=== PATIENT | male | born 1930 | race Caucasian/White ===

== ENCOUNTER 2016-09-18 13:06 | Emergency (ER) | payer OTHER ==
[~2016-09-18] VITALS: Wt 84.9 kg
[~2016-09-18 13:06] MED LIST: CEPH-443 PO; FURO40TA4; LISI10TA; LORA-52; OMEP20CA9; OXYB10TA13; PRAV20TA63; TRAM-40; WARF2.5T
[2016-09-18 15:54] LABS: BASOPHILS % 0.2 % (0.0-2.0); EOSINOPHILS # 0.1 10^3/ul (0.0-0.5); EOSINOPHILS % 2.5 % (0.0-7.0); HEMATOCRIT 37.7 % (42.0-52.0); HEMOGLOBIN 12.7 g/dl (14.0-18.0); LYMPHOCYTES # 0.5 10^3/ul (0.8-2.9); LYMPHOCYTES % 10.6 % (15.0-51.0); MEAN CORPUSCULAR HEMOGLOBIN 32.4 pg (29.0-33.0); MEAN CORPUSCULAR HGB CONC 33.6 g/dl (32.0-37.0); MEAN CORPUSCULAR VOLUME 96.4 fl (82.0-101.0); MEAN PLATELET VOLUME 6.7 fl (7.4-10.4); MONOCYTE # 0.5 10^3/ul (0.3-0.9); MONOCYTES % 11.5 % (0.0-11.0); NEUTROPHIL # 3.4 10^3/ul (1.6-7.5); NEUTROPHILS % 75.2 % (39.0-77.0); PLATELET COUNT 254 10^3/UL (140-440); RED BLOOD COUNT 3.91 10^6/ul (4.70-6.10); RED CELL DISTRIBUTION WIDTH 14.1 % (11.5-14.5); UNCORRECTED WBC 4.5 10^3/ul (4.8-10.8); WHITE BLOOD COUNT 4.5 10^3/ul (4.8-10.8)
[2016-09-18 16:10] LABS: CONDITION 1
[2016-09-18 16:11] LABS: INR 1.07; PARTIAL THROMBOPLASTIN TIME 27.2 Sec (25.0-35.0); PROTIME 13.9 Sec (12.2-14.2); PT RATIO 1.1
[2016-09-18 16:12] LABS: POTASSIUM 4.8 mmol/L (3.5-5.1)
[2016-09-18 16:14] LABS: CREATININE 1.14 mg/dl (0.61-1.24)
[2016-09-18 16:15] LABS: CALCIUM 8.8 mg/dl (8.4-10.2)
[2016-09-18 16:26] LABS: TROPONIN-I 0.013 ng/ml (0.00-0.12)
--- NOTE | 2016-09-18 16:29 | RADRPT ---
PROCEDURE: XR Chest. CLINICAL INDICATION: Chest pain TECHNIQUE: Chest AP portable. COMPARISON: 12/25/2013 FINDINGS: The mediastinal structures are unremarkable. There is calcification of the thoracic aorta (consiste nt with atherosclerosis). There is moderate cardiomegaly. The pulmonary vascularity is normal. Th ere is mild bibasilar subsegmental atelectasis. No consolidation is identified. The pleural spaces are unremarkable. There are senescent changes of the axial skeleton. IMPRESSION: Calcification of the thoracic aorta (consistent with atherosclerosis) Moderate cardiomegaly Mild bibasilar subsegmental atelectasis RPTAT: HGDB .Art Bobo MD, MD Date Time Electronically viewed and signed by .Art Bobo MD, on 09/18/2016 16:28 .B/
[2016-09-18] MEDS ORDERED: FUROSEMIDE 40 MG INJ IV ONE (17:00)
--- NOTE | 2016-09-18 17:01 | ERD ---
ER Documentation Chief Complaint Date/Time DATE: 09/18/16 TIME: 16:59 Chief Complaint COUGH AND FLU-LIKE SYMPTOMS MILD SOB FOR 2 WKS. NO CP OR EAR PAIN OR ST HPI This is an 86-year-old male who presents to the emergency room for evaluation of bilateral leg swelling and mild shortness of breath worse when lying flat. This patient was seen by his primary care physician who stated that he could have "water on his lungs". The patient was transferred to the emergency room for further evaluation. This patient does have a history of congestive heart failure and is on Lasix 40 mg daily patient is denying any chest pain or palpitations at this time. Patient denies any aggravating or relieving factors for his shortness of breath besides position ROS All systems reviewed and are negative except as per history of present illness. Medications Home Meds Discontinued Reported Medications Oxybutynin Chloride* (Oxybutynin Chloride* ER) 10 Mg/Bottle Tab.osm.24 03/22/10 Pravastatin Sodium* (Pravastatin Sodium*) 20 Mg Tablet 03/22/10 Warfarin Sodium* (Coumadin*) 2.5 Mg Tablet 03/22/10 Loratadine (Alavert) 10 Mg Tablet 03/22/10 Lisinopril* (Prinivil*) 10 Mg Tablet 03/22/10 Furosemide (Lasix) 40 Mg Tab 03/22/10 Tramadol Hcl* (Ultram*) 50 Mg Tablet 03/22/10 Omeprazole* (Prilosec*) 20 Mg Capsule. 03/22/10 Discontinued Scripts Cephalexin* (Keflex*) 500 Mg Capsule, 500 MG PO QID for 2 Days, CAP Prov:PRAVEENA JAMIL DO 09/04/15 Allergies Allergies: Coded Allergies: No Known Allergies (Verified Allergy, Unknown, 09/18/16) PMhx/Soc History of Surgery: Yes (spine sx) Anesthesia Reaction: No Hx Neurological Disorder: No Hx Cardiac Disorders: Yes (A-FIB) Hx Psychiatric Problems: No Hx Miscellaneous Medical Probl: Yes (HTN) Hx Alcohol Use: Yes (OCCASSIONAL) Hx Substance Use: No Hx Tobacco Use: No Smoking Status: Never smoker Physical Exam Vitals Vital Signs Date Time Temp Pulse Resp B/P Pulse Ox O2 Delivery O2 Flow Rate FiO2 09/18/16 15:45 Nasal Cannula 2.0 09/18/16 15:45 Nasal Cannula 2 09/18/16 13:16 98.6 94 20 170/78 94 Physical Exam INITIAL VITAL SIGNS: Reviewed by me GENERAL: The patient is well developed and appropriate for usual state of health in no apparent distress HEENT: Pupils equal, round, and reactive to light. EOMI. There is no scleral icterus. NECK: C-spine is soft and supple, there is no meningismus. There is no cervical lymphadenopathy. LUNGS: Clear to auscultation bilaterally. There are no rales, wheezes or rhonchi. HEART: Regular rate and rhythm, no murmurs, clicks, rubs or gallops. ABDOMEN: Soft, non-tender, non-distended. There are bowel sounds in all four quadrants. No rebound or guarding. EXTREMITIES: 2+ pitting edema in the bilateral lower extremities NEUROLOGICAL: The patient moves all four extremities with 5/5 strength. Cranial nerves II - XII are intact. Normal gait. Alert and oriented SKIN: There is no apparent rash or petechiae. HEME/LYMPHATIC: There is no evidence of excessive bruising or lymphedema. PSYCHIATRIC: The patient does not appear anxious or depressed. Result Diagram: 09/18/16 1543 09/18/16 1543 Results 24 hrs Laboratory Tests Test 09/18/16 15:43 Activated Partial Thromboplast Time 27.2Sec Anion Gap 15 B-Type Natriuretic Peptide 1220PG/ML Basophils # 0.010^3/ul Basophils % 0.2% Blood Morphology Comment Blood Urea Nitrogen 18mg/dl Calcium Level 8.8mg/dl Carbon Dioxide Level 31mmol/L Chloride Level 101mmol/L Creatinine 1.14mg/dl Eosinophils # 0.110^3/ul Eosinophils % 2.5% Glucose Level 99mg/dl Hematocrit 37.7% Hemoglobin 12.7g/dl INR International Normalized Ratio 1.07 Lymphocytes # 0.510^3/ul Lymphocytes % 10.6% Mean Corpuscular Hemoglobin 32.4pg Mean Corpuscular Hemoglobin Concent 33.6g/dl Mean Corpuscular Volume 96.4fl Mean Platelet Volume 6.7fl Monocytes # 0.510^3/ul Monocytes % 11.5% Neutrophils # 3.410^3/ul Neutrophils % 75.2% Nucleated Red Blood Cells # 0.010^3/ul Nucleated Red Blood Cells % 0.0/100WBC Platelet Count 74658^3/UL Potassium Level 4.8mmol/L Prothrombin Time 13.9Sec Prothrombin Time Ratio 1.1 Red Blood Count 3.9110^6/ul Red Cell Distribution Width 14.1% Sodium Level 142mmol/L Troponin I 0.013ng/ml White Blood Count 4.510^3/ul Current Medications Medications (Trade) Dose Ordered Sig/Basia Route PRN Reason Start Time Stop Time Status Last Admin Dose Admin Furosemide (Lasix) 40 mg ONCE ONCE IV 09/18/16 17:00 09/18/16 17:01 Procedures/MDM Chest X-ray 1V Interpreted by me: Soft Tissue: No acute abnormalities Bones: No acute abnormalities Mediastinum/Cardiac Silhouette/Lungs: [No acute abnormalities] EKG: Rate/Rhythm: [Normal Sinus Rhythm] QRS, ST, T-waves: [No changes consistent w/ acute ischemia] Impression: [No evidence of ischemia or arrhythmia] This is an 86-year-old male who presents to the emergency room for evaluation of peripheral edema and mild shortness of breath worse with laying flat. This patient's history and physical exam is consistent with acute CHF. The patient is not hypoxic, no need for oxygen, no infiltrates on chest x-ray. The patient was given 40 mg of IV Lasix here in the emergency room. I did advise his to increase his Lasix dose from 40-60 mg daily for the next 3 days and to consult his primary care physician after. Family verbalized understanding, they are comfortable taking the patient home at this time and I advised him to keep the legs elevated and they verbalized understanding. Departure Diagnosis: Primary Impression: Acute CHF Additional Impressions: Normocytic anemia Shortness of breath Condition: Stable LAKEISHARENA GALEANOATUL CAUSEY Sep 18, 2016 17:01
[2016-09-18] MEDS ORDERED: LISI20TA11 PO (17:05)
[2016-09-18] MEDS ORDERED: TRAM-40 PO (17:06)
[2016-09-18] MEDS ORDERED: FURO40TA4 PO (17:06)
[2016-09-18] MEDS ORDERED: AMIT10TA6 PO (17:07)
[2016-09-18 17:17] VITALS: BP 157/89; PULSE 89; RESP 20
== END 2016-09-18 17:18 | disposition home or self-care (01) ==
LOC: E/R 13:06
DX: I50.9 Heart failure, unspecified (principal); D64.9 Anemia, unspecified; I10 Essential (primary) hypertension; Z79.01 Long term (current) use of anticoagulants
CPT/HCPCS: 36415; 71010; 80048; 83880; 84484; 85025; 85610; 85730; 93005; 96374; 99285; J1940

== ENCOUNTER 2016-09-29 06:53 | Emergency (ER) | payer OTHER ==
[~2016-09-29] VITALS: Ht 162.6 cm; Wt 72.7 kg
[~2016-09-29 06:53] MED LIST changes: +AMIT10TA6 PO; -CEPH-443 PO; -FURO40TA4; +FURO40TA4 PO; -LISI10TA; +LISI20TA11 PO; -LORA-52; -OMEP20CA9; -OXYB10TA13; -PRAV20TA63; -TRAM-40; +TRAM-40 PO; -WARF2.5T
[2016-09-29 06:57] VITALS: Ht 162.6 cm; Wt 72.7 kg
[2016-09-29] MEDS ORDERED: FUROSEMIDE 40 MG INJ IV ONE (07:30)
[2016-09-29 07:59] LABS: ADD SCAN DIFF NO
--- NOTE | 2016-09-29 08:07 | RADRPT ---
PROCEDURE: XR Chest. CLINICAL INDICATION: Abdominal pain TECHNIQUE: Single frontal chest x-ray. COMPARISON: 09/18/2016 FINDINGS: The lungs are clear of acute infiltrates, edema, effusions, or masses.Calcific atherosclerosis of th e aorta is present.. Cardiomegaly is unchanged.. The osseous structures are intact. There is mild elevation of the left hemidiaphragm. IMPRESSION: No acute cardiopulmonary disease. Cardiomegaly with calcific atherosclerosis of the aorta. RPTAT: AA .aKrl Russo MD, MD Date Time Electronically viewed and signed by .Karl Russo MD, MD on 09/29/2016 08:07 .L/
[2016-09-29 08:09] LABS: ABNORMAL IP MESSAGE 1; BASOPHILS % 0.2 % (0.0-2.0); EOSINOPHILS % 0.1 % (0.0-7.0); HEMATOCRIT 45.7 % (42.0-52.0); LYMPHOCYTES # 0.5 10^3/ul (0.8-2.9); LYMPHOCYTES % 5.4 % (15.0-51.0); MEAN CORPUSCULAR HEMOGLOBIN 31.8 pg (29.0-33.0); MEAN CORPUSCULAR HGB CONC 32.8 g/dl (32.0-37.0); MEAN PLATELET VOLUME 9.2 fl (7.4-10.4); MONOCYTE # 0.8 10^3/ul (0.3-0.9); MONOCYTES % 7.8 % (0.0-11.0); NEUTROPHIL # 8.3 10^3/ul (1.6-7.5); NEUTROPHILS % 86.1 % (39.0-77.0); PLATELET COUNT 310 10^3/UL (140-415); RED BLOOD COUNT 4.71 10^6/ul (4.70-6.10); RED CELL DISTRIBUTION WIDTH 12.7 % (11.5-14.5); WHITE BLOOD COUNT 9.6 10^3/ul (4.8-10.8)
[2016-09-29 09:12] LABS: ALBUMIN 4.3 g/dl (3.3-4.9)
[2016-09-29 09:13] LABS: POTASSIUM 4.2 mmol/L (3.5-5.1)
[2016-09-29 09:15] LABS: ALBUMIN/GLOBULIN RATIO 1.13; BILIRUBIN,INDIRECT 2.2 mg/dl (0-1.1); BILIRUBIN,TOTAL 2.2 mg/dl (0.2-1.3); CREATININE 1.21 mg/dl (0.61-1.24); TOTAL PROTEIN 8.1 g/dl (6.1-8.1)
[2016-09-29 09:16] LABS: CALCIUM 9.4 mg/dl (8.4-10.2)
[2016-09-29 09:27] LABS: TROPONIN-I 0.029 ng/ml (0.00-0.12)
[2016-09-29] MEDS ORDERED: FURO-109 PO (10:38)
[2016-09-29] MEDS ORDERED: NAPR-260 PO (10:38)
--- NOTE | 2016-09-29 10:45 | ERD ---
ER Documentation Chief Complaint Date/Time DATE: 09/29/16 TIME: 10:41 Chief Complaint unable to walk x2days, weakness in left arm, bilateral knee and ankle pain HPI 86-year-old man brought in by family members for recent lower extremity swelling and dyspnea on exertion. He does have a history of congestive heart failure and suspects he has some fluid in his lungs. Patient denies fevers or chills, no chest pain, no vomiting or diarrhea, no headache or blurry vision. Patient denies focal weakness in his arms or legs, no loss of consciousness, no recent falls, no headache or blurry vision. Patient states he has been using his medications as prescribed. ROS All systems reviewed and are negative except as per history of present illness. Medications Home Meds Active Scripts Naproxen* (Naprosyn*) 500 Mg Tablet, 500 MG PO BID Y for PAIN AND/OR INFLAMMATION, #30 TAB Prov:DIAN OLIVEROS MD 09/29/16 Furosemide* (Lasix*) 40 Mg Tablet, 40 MG PO BID, #20 TAB Prov:DIAN OLIVEROS MD 09/29/16 Reported Medications Amitriptyline Hcl* (Amitriptyline Hcl*) 10 Mg Tablet, 10 MG PO QHS, #30 TAB 09/18/16 Tramadol Hcl* (Ultram*) 50 Mg Tablet, 50 MG PO Q6H Y for PAIN, TAB 09/18/16 Furosemide* (Furosemide*) 40 Mg Tablet, 40 MG PO DAILY, TAB 09/18/16 Lisinopril* (Lisinopril*) 20 Mg Tablet, 20 MG PO DAILY, #30 TAB 09/18/16 Allergies Allergies: Coded Allergies: No Known Allergies (Verified Allergy, Unknown, 09/18/16) PMhx/Soc Congestive heart failure, hypertension, arthritis, atrial fibrillation History of Surgery: Yes (spine sx) Anesthesia Reaction: No Hx Neurological Disorder: No Hx Cardiac Disorders: Yes (A-FIB) Hx Psychiatric Problems: No Hx Miscellaneous Medical Probl: Yes (HTN) Hx Alcohol Use: Yes (OCCASSIONAL) Hx Substance Use: No Hx Tobacco Use: No Smoking Status: Former smoker FmHx Family History: No diabetes Physical Exam Vitals Vital Signs Date Time Temp Pulse Resp B/P Pulse Ox O2 Delivery O2 Flow Rate FiO2 09/29/16 11:13 98.4 82 18 148/79 99 Room Air 2.0 Nasal Cannula 09/29/16 10:00 88 18 138/75 98 Nasal Cannula 2.0 09/29/16 08:00 78 18 162/80 98 Nasal Cannula 4.0 09/29/16 06:57 98.4 93 18 141/66 94 Physical Exam GENERAL: Well-developed, well-nourished, well-hydrated, in no apparent distress , looks nontoxic in appearance HEENT: Moist mucous membranes, pink conjunctiva, no cervical spine tenderness or step-off deformities, no goiter, no jaundice or icterus, extraocular movements intact without pain. No submandibular induration, and no pharyngeal erythema NEURO: Alert and oriented 3, cranial nerves II through XII intact bilaterally, pupils equal round reactive to light, no focal deficits or facial asymmetry, sensation intact distally Strength 5/5 in upper and lower extremities bilaterally CARDIAC: Regular rate and rhythm, no murmurs rubs or gallops LUNGS: Bibasilar crackles, no wheezing or stridor ABDOMEN: Soft nontender, no guarding, no rigidity, no rebound, no psoas sign no obturator sign. Normoactive bowel sounds SKIN: Warm and dry to touch, no abrasions, contusions, or hematomas, no lacerations, no ecchymosis, no target lesions, and without ulcers EXTREMITIES: No clubbing cyanosis, 1+ pitting edema in the lower extremities bilaterally, calves are bilaterally symmetrical, no Homans sign, no popliteal cord sign. Distal pulses equal and bilateral PSYCH: Normal affect without agitation or irritability Result Diagram: 09/29/16 0747 09/29/16 0845 Results 24 hrs Laboratory Tests Test 09/29/16 07:47 09/29/16 08:45 Basophils # 0.010^3/ul Basophils % 0.2% Eosinophils # 0.010^3/ul Eosinophils % 0.1% Hematocrit 45.7% Hemoglobin 15.0g/dl Lymphocytes # 0.510^3/ul Lymphocytes % 5.4% Mean Corpuscular Hemoglobin 31.8pg Mean Corpuscular Hemoglobin Concent 32.8g/dl Mean Corpuscular Volume 97.0fl Mean Platelet Volume 9.2fl Monocytes # 0.810^3/ul Monocytes % 7.8% Neutrophils # 8.310^3/ul Neutrophils % 86.1% Nucleated Red Blood Cells # 0.010^3/ul Nucleated Red Blood Cells % 0.0/100WBC Platelet Count 36271^3/UL Red Blood Count 4.7110^6/ul Red Cell Distribution Width 12.7% White Blood Count 9.610^3/ul Alanine Aminotransferase (ALT/SGPT) 23IU/L Albumin 4.3g/dl Albumin/Globulin Ratio 1.13 Alkaline Phosphatase 113IU/L Anion Gap 20 Aspartate Amino Transf (AST/SGOT) 29IU/L B-Type Natriuretic Peptide 915PG/ML Blood Urea Nitrogen 28mg/dl Calcium Level 9.4mg/dl Carbon Dioxide Level 32mmol/L Chloride Level 93mmol/L Creatinine 1.21mg/dl Direct Bilirubin 0.00mg/dl Globulin 3.80g/dl Glucose Level 116mg/dl Indirect Bilirubin 2.2mg/dl Lipase 94U/L Potassium Level 4.2mmol/L Sodium Level 141mmol/L Total Bilirubin 2.2mg/dl Total Protein 8.1g/dl Troponin I 0.029ng/ml Current Medications Medications (Trade) Dose Ordered Sig/Basia Route PRN Reason Start Time Stop Time Status Last Admin Dose Admin Furosemide (Lasix) 60 mg ONCE ONCE IV 09/29/16 07:30 09/29/16 07:31 DC 09/29/16 07:49 Procedures/[facility] IV line was established patient was placed on director of cardiac cath lab rhythm strip revealed a sinus rhythm at about 90 bpm with upright P and T waves. Patient was afebrile. One view chest x-ray performed, read by me revealed mild interstitial edema and cardiomegaly, no acute infiltrates, no pneumothorax. EKG performed, read by me revealed an atrial fibrillation rate controlled at 87 bpm, normal axis, narrow QRS complex, no concerning ST elevations or depressions noted. I administered furosemide 60 mg IV 1. Patient diuresed while here in the ED CBC was unremarkable, electrolytes reveal BUN/creatinine 28/1.2, liver function tests were normal, troponin was negative Patient has no signs or symptoms of DVT instead he has been bilateral symmetric peripheral edema secondary to fluid retention and heart failure. His oxygen saturation on room air is normal and he was able to ambulate here in the ED without difficulty and without complaints of shortness of breath or dyspnea on exertion. After the above medications were administered patient's symptoms improved including his shortness of breath and knee pain. His vital signs are normal and his saturation is 97% on room air. Patient has been laying flat in the ED without any difficulty or complaints of shortness of breath. He is able to ambulate without difficulty and states his symptoms have resolved. I offered inpatient management for decompensated heart failure although patient states she has improved so much that he like to be managed at home, with follow-up with his primary care physician. I recommended he increase his furosemide from once to twice daily and provided him this updated prescription. Differential diagnoses considered, included but not limited to acute coronary syndrome, pulmonary embolism, aortic dissection, abdominal aortic aneurysm, sepsis, stroke, meningitis, encephalitis, pneumonia, appendicitis, cholecystitis , bowel obstruction, pyelonephritis, nephrolithiasis, cystitis, as well as metabolic, hematologic, and electrolyte abnormalities. As well as abscess, cellulitis, fractures, and dislocations. Patient feels much better at this time, and vital signs are normal, symptoms have improved. I did give strict instructions to return to the ED if symptoms continue or worsen, patient will otherwise follow-up with primary care physician. Patient understood instructions and agreed to plan. Departure Diagnosis: Primary Impression: CHF (congestive heart failure) Congestive heart failure type: systolic Congestive heart failure chronicity: acute Qualified Code: I50.21 - Acute systolic congestive heart failure Additional Impression: Peripheral edema Condition: Good Patient Instructions: When Your Child Has Congestive Heart Failure (CHF), Peripheral Edema, Bilateral DIAN OLIVEROS MD Sep 29, 2016 10:45
[2016-09-29 11:13] VITALS: BP 148/79; PULSE 82; RESP 18; TEMP 98.4
== END 2016-09-29 11:15 | disposition home or self-care (01) ==
LOC: E/R 06:53
DX: I50.21 Acute systolic (congestive) heart failure (principal); R40.2252 Coma scale, best verbal response, oriented, at arrival to emergency department; R60.0 Localized edema; I10 Essential (primary) hypertension; R40.2362 Coma scale, best motor response, obeys commands, at arrival to emergency department; R40.2142 Coma scale, eyes open, spontaneous, at arrival to emergency department; Z87.891 Personal history of nicotine dependence
CPT/HCPCS: 36415; 51702; 71010; 80053; 83690; 83880; 84484; 85025; 93005; 96374; 99285; J1940

== ENCOUNTER 2017-06-18 16:18 | Emergency (ER) | payer OTHER ==
[~2017-06-18] VITALS: Wt 77.3 kg
[~2017-06-18 16:18] MED LIST changes: +FURO-109 PO; +NAPR-260 PO
[2017-06-18] MEDS ORDERED: HYDROCODONE/APAP (5/325) TAB PO ONE (22:30)
[2017-06-18 23:02] LABS: ADD UMIC YES; UR ASCORBIC ACID NEGATIVE (NEGATIVE); UR BILIRUBIN (Dip) NEGATIVE (NEGATIVE); UR BLOOD (Dip) 3+ mg/dL (NEGATIVE); UR CLARITY SLIGHTLY CLOUDY (CLEAR); UR COLOR YELLOW (YELLOW); UR GLUCOSE (Dip) NEGATIVE (NEGATIVE); UR KETONES (Dip) NEGATIVE (NEGATIVE); UR LEUKOCYTE ESTERASE (Dip) 3+ Leu/ul (NEGATIVE); UR MUCUS FEW /HPF (NONE SEEN); UR NITRITE (Dip) NEGATIVE (NEGATIVE); UR RBC > 182 /HPF (0-5); UR SPECIFIC GRAVITY (Dip) 1.006 (1.003-1.030); UR TOTAL PROTEIN (Dip) NEGATIVE (NEGATIVE); UR UROBILINOGEN (Dip) NEGATIVE (NEGATIVE)
--- NOTE | 2017-06-18 23:54 | RADRPT ---
PROCEDURE: Noncontrast CT examination of the pelvis. CLINICAL INDICATION: Prostate pain and difficulty urinating. TECHNIQUE: Noncontrast CT examination of the pelvis, with axial, sagittal and coronal reformatted images. CTDI: 6.70 mGy and DLP: 215.30 mGy-cm. COMPARISON: None. FINDINGS: Malpositioned Petit catheter with balloon inflated at the base of the penis. Recommend complete with drawal and reinsertion. The prostate is enlarged, right greater than left, with mass effect at the inferior bladder, right g reater than left. The prostate cannot be further evaluated on the present series. The prostate measu res up to 53 x 50 mm in the axial plane. Osseous structures are without evident acute fracture. No sclerotic lesions to suggest osseous metas tatic prostate cancer deposits. Advanced degenerative changes in the lower lumbar spine. IMPRESSION: 1. Malpositioned Petit catheter with balloon inflated at the base of the penis. 2. Asymmetric enlargement of the prostate, which cannot be further evaluated on the present series. 3. Differential considerations include prostate neoplasm, and consider dedicated MRI series. These findings, impression and recommendation were discussed with Dr. Arreaga of the [facility] emergency department at the conclusion of this examination by the undersigned interpreti ng radiologist on 06/18/2017 at 2349 hours RPTAT: [facility]U Physician Gabriela Date Time Electronically viewed and signed by Physician Gabriela on 06/18/2017 23:54 RS/
[2017-06-19] MEDS ORDERED: NITR-58 PO (00:24)
[2017-06-19] MEDS ORDERED: CIPR500T4 PO (00:24)
--- NOTE | 2017-06-19 00:31 | ERD ---
ER Documentation Chief Complaint Chief Complaint fc not draining, placed today HPI 86-year-old male comes in with his family for Petit catheter is not functioning properly. He is able to get urine out of but he has to strain really hard and has pain that he needs to strain so hard just to get urine in the Petit bag. He also would like an evaluation of his prostate because he believes that is the reason that he cannot pee.Denies any fevers and chills. ROS All systems reviewed and are negative except as per history of present illness. Medications Home Meds Active Scripts Ciprofloxacin Hcl* (Ciprofloxacin Hcl*) 500 Mg Tablet, 500 MG PO BID for 7 Days , TAB Prov:JONAH GALVAN DO 06/19/17 Nitrofurantoin Monohyd Macrocr* (Macrobid*) 100 Mg Capsr, 100 MG PO BID for 5 Days, CAP Prov:JONAH GALVAN DO 06/19/17 Naproxen* (Naprosyn*) 500 Mg Tablet, 500 MG PO BID Y for PAIN AND/OR INFLAMMATION, #30 TAB Prov:DIAN OLIVEROS MD 09/29/16 Furosemide* (Lasix*) 40 Mg Tablet, 40 MG PO BID, #20 TAB Prov:DIAN OLIVEROS MD 09/29/16 Reported Medications Amitriptyline Hcl* (Amitriptyline Hcl*) 10 Mg Tablet, 10 MG PO QHS, #30 TAB 09/18/16 Tramadol Hcl* (Ultram*) 50 Mg Tablet, 50 MG PO Q6H Y for PAIN, TAB 09/18/16 Furosemide* (Furosemide*) 40 Mg Tablet, 40 MG PO DAILY, TAB 09/18/16 Lisinopril* (Lisinopril*) 20 Mg Tablet, 20 MG PO DAILY, #30 TAB 09/18/16 Allergies Allergies: Coded Allergies: No Known Allergies (Verified Allergy, Unknown, 09/18/16) PMhx/Soc History of Surgery: Yes (spine sx) Anesthesia Reaction: No Hx Neurological Disorder: No Hx Cardiac Disorders: Yes (A-FIB , CHF ) Hx Psychiatric Problems: No Hx Miscellaneous Medical Probl: Yes (HTN) Hx Alcohol Use: Yes (OCCASSIONAL) Hx Substance Use: No Hx Tobacco Use: No (quit 30 yrs ago ) Smoking Status: Never smoker Physical Exam Vitals Vital Signs Date Time Temp Pulse Resp B/P Pulse Ox O2 Delivery O2 Flow Rate FiO2 06/18/17 16:30 98.1 64 20 109/56 98 Physical Exam Const: [] No acute distress Head: Atraumatic Eyes: Normal Conjunctiva ENT: Normal External Ears, Nose and Mouth. Abd: Soft, non tender, non distended. Normal bowel sounds Skin: No petechiae or rashes Back: No midline or flank tenderness Ext: No cyanosis, or edema Neur: Awake and alert and oriented x 3, no focal deficits. Psych: Normal Mood and Affect Results 24 hrs Laboratory Tests Test 06/18/17 22:20 Urine Color YELLOW Urine Clarity SLIGHTLY CLOUDY Urine pH 7.0 Urine Specific [place] 1.006 Urine Ketones NEGATIVEmg/dL Urine Nitrite NEGATIVEmg/dL Urine Bilirubin NEGATIVEmg/dL Urine Urobilinogen NEGATIVEmg/dL Urine Leukocyte Esterase 3+Nellie/ul Urine Microscopic RBC > 182/HPF Urine Microscopic WBC 113/HPF Urine Mucus FEW/HPF Urine Hemoglobin 3+mg/dL Urine Glucose NEGATIVEmg/dL Urine Total Protein NEGATIVEmg/dl Current Medications Medications (Trade) Dose Ordered Sig/Basia Route PRN Reason Start Time Stop Time Status Last Admin Dose Admin Acetaminophen/ Hydrocodone Bitart ([place] (5/325)) 1 tab ONCE ONCE PO 06/18/17 22:30 06/18/17 22:31 DC 06/18/17 22:29 Procedures/MDM Patient with a misplaced Petit related to his discomfort as well as a asymmetric enlarged prostate on imaging. He has no signs of does have a urinary tract infection which is complicated given his age. Going to discharge him both Macrobid and ciprofloxacin and clear instructions to get a referral from his doctor for urology follow-up for further evaluation.. Does not have any significant pain after Petit change. Urine culture was also obtained to assure this is not a resistant bacteria. Departure Diagnosis: Primary Impression: Complicated UTI (urinary tract infection) Additional Impressions: Petit catheter problem Enlarged prostate Condition: Stable Patient Instructions: Prostate Biopsy, Understanding Urinary Tract Infections ( UTIs) Additional Instructions: Call your primary care doctor TOMORROW for an appointment with a urologist. .See the doctor sooner or return here if your condition worsens before your appointment time. JONAH GALVAN DO Jun 19, 2017 00:31
[2017-06-19] MEDS ORDERED: ASPI-535 PO (01:16)
[2017-06-19] MEDS ORDERED: SENN-53 PO (01:16)
[2017-06-19] MEDS ORDERED: POTA20LI5 PO (01:16)
[2017-06-19] MEDS ORDERED: OMEP40CA6 PO (01:16)
[2017-06-19] MEDS ORDERED: ESCI10TA48 PO (01:16)
[2017-06-19] MEDS ORDERED: TAMS0.4C2 PO (01:16)
[2017-06-19 01:49] VITALS: BP 119/53; PULSE 77; RESP 20; TEMP 98.1
== END 2017-06-19 01:45 | disposition home or self-care (01) ==
LOC: E/R 16:18
DX: N39.0 Urinary tract infection, site not specified (principal); N40.1 Benign prostatic hyperplasia with lower urinary tract symptoms; I10 Essential (primary) hypertension; I50.9 Heart failure, unspecified; Y73.8 Miscellaneous gastroenterology and urology devices associated with adverse incidents, not elsewhere classified; Z87.891 Personal history of nicotine dependence
CPT/HCPCS: 72192; 81001; 87086

== ENCOUNTER 2018-05-15 09:25 | Emergency (ER) | END 2018-05-15 13:55 | disposition home or self-care (01) ==

== ENCOUNTER 2018-05-20 12:49 | Inpatient (IN) | END 2018-05-23 15:20 | disposition hospice, home (50) | DRG 871 ==